=== PATIENT | male | born 1955 | race Caucasian/White ===

== ENCOUNTER → 2016-12-22 | Outpatient (CLI) | payer OTHER ==
--- NOTE | 2017-01-01 23:23 | RADIOLOGY REPORT PS360 ---
CT CHEST W/O CONTRAST ORDERING PHYSICIAN : Tracy Murdock MD PATIENT AGE: 61 years GENDER: Male INDICATION: HIGH RESOLUTION,SIMPLE CHRONIC BRONCHITIS, TOBACCO ABUSE TECHNIQUE helical scanning through the chest with 5 mm sections as well as thin 1.25 mm sections every 10 mm submitted. COMPARISON: Chest film 12/19/2014 FINDINGS Developing centrilobular emphysema . At the upper lung akers question very subtle reticulonodular pattern background pattern on the high-resolution studies.. A very subtle noted but may benefit from follow-up There are some scattered areas of peripheral fibrotic scarring linear scarring. Also some areas of lobar septal thickening.q Airways.. Upper normal wall thickness most evident centrally and on the thickened images.. No extraluminal or active body lesion. Pleura. No pleural effusion. No pleural mass. Spine. Generous anterior marginal osteophytes throughout spine Mediastinum. No mediastinal adenopathy nor hilar adenopathy of significance. 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 Uppermost abdomen. Moderately distended fluid-filled stomach. Stomach noted warrants correlation but otherwise unremarkable. Limited images here Emphysematous changes Small 5.7 mm indeterminate noncalcified nodule at the periphery of the left midlung, axial image 12). Warrants follow-up in 6-8 months., And this appearance smoker. Also question small vague 4 mm small nodule suggested at posterior medial left upper lobe on axial image 16. The right upper lung small <4 mm peripheral nodule right upper lobe axial image 18 Finally there is a 6.2 mm vague nodule towards right lower lobe axial slice 30. Sagittal slice 23.. These latter nodules warrant follow-up as well IMPRESSION: ......... Developing centrilobular emphysematous changes. Question very subtle early reticular nodular background character suggested towards upper lung akers and apices.-. Subtle, Equivocal observation but noted and may require follow-up as symptoms progress. Minimal linear fibrotic scarring anteriorly at the lingula and elsewhere throughout the peripheral lung. Small nodules bilaterally follow-up CT chest in 6-7 months. Specifically would note.: -Small 6.2 mm nodule posterior right lower lobe -Small 5.7 mm indeterminate noncalcified nodule at the periphery of the left midlung [place], Warrants follow-up in 6-7 months., In this evident smoker.
== END ==
LOC: RAD 13:16
DX: J41.0 Simple chronic bronchitis (principal); Z72.0 Tobacco use

== ENCOUNTER → 2017-11-13 | Outpatient (CLI) | payer OTHER ==
--- NOTE | 2017-11-16 06:48 | RADIOLOGY REPORT PS360 ---
CT CHEST W/O CONTRAST HISTORY: Emphysema, follow-up nodules, tobacco use, chronic bronchitis FU CT , CHRONIC BRONCHITIS , TOBACCO USE ORDERING PHYSICIAN: Tracy Murdock MD PATIENT AGE: 62 years TECHNIQUE: Axial images obtained without contrast. Sagittal, and coronal reformatted images are generated and reviewed. COMPARISON: 12/22/2016 FINDINGS: No mediastinal or hilar mass is evident. Scattered small lymph nodes are present as before. There are coronary artery calcifications. Normal heart size. No pericardial effusion. Centrilobular emphysematous change. Scattered small noncalcified nodules are once again noted in both lungs. These are not significant change. There are mild fibrotic change in the superior segment of the left lower lobe. Fibrotic change is present in the left upper lobe as well which is unchanged. No new nodules are detected. No effusions or infiltrates. No acute bony anomalies. Upper abdominal. IMPRESSION: 1. Overall stable CT appearance of the chest with mild centrilobular emphysematous changes/obstructive bronchitis and scattered bilateral noncalcified pulmonary nodules. 2. No new nodules evident. 3. Coronary artery disease
== END ==
LOC: RAD 11-09 10:45
DX: R93.8 Abnormal findings on diagnostic imaging of other specified body structures (principal)